=== PATIENT | male | born 1940 | race Two or more races ===

== ENCOUNTER → 2017-09-09 07:04 | Day surgery (SDC) | payer MEDICARE ==
[~2017-09-09 07:04] MED LIST: Acetaminophen TAB* 325 MG ONE; Acetaminophen TAB* 325 MG PO ONE; Aspirin 81 mg CHEW TAB* 81 MG TAB.CHEW ONE; Flumazenil* 0.1 MG/ML 5 ML MDV ONE; Heparin 2 UNITS/ML IVPREMIX* 1,000 ML IV ONE; Heparin 2 UNITS/ML IVPREMIX* 2,000 ML IV ONE; Heparin(*) 1000 UNIT/ML 10 ML VIAL CATH LAB IV ONE; Iohexol 350 (CONTRAST) 200 ML MDV IV ONE; LORazepam TAB(*) 1 MG ONE; Lidocaine 1% INJ* 10 MG/ML 30 ML SDV ONE; Midazolam* 1 MG/ML 10 ML VIAL (10 MG) ONE; Naloxone* 0.4 MG/ML 1 ML VIAL ONE; Ondansetron INJ* 2 MG/ML VIAL ONE; VERAPAMIL 2.5 MG/ML 2 ML VIAL ** 5 mg/2 ml ONE; fentaNYL* 50 MCG/ML 2 ML VIAL (100 MCG VIAL) ONE; nitroGLYCERIN DRIP* 25,000 MCG/250 ML BTL ONE
[2017-09-09 07:51] LABS: Hematocrit 30 % (42-52); Hemoglobin 9.6 g/dl (14.0-18.0); Mean Corpuscular HGB Conc 32 g/dl (31-36); Mean Corpuscular Hemoglobin 23 pg (27-31); Mean Corpuscular Volume 70 fL (80-94); Mean Platelet Volume 6.8 um3 (7.4-10.4); Platelet Count 190 10^3/ul (150-450); Red Blood Count 4.22 10^6/ul (4.00-5.40); Red Cell Distribution Width 16 % (10.5-15); White Blood Count 4.8 10^3/ul (3.5-10.8)
[2017-09-09 07:58] LABS: INR 1.03 (0.77-1.02)
[2017-09-09 08:10] LABS: ABS Basophils 0.1 10^3/ul (0-0.2); ABS Eosinophils 0.3 10^3/ul (0-0.6); ABS Lymphocytes 1.4 10^3/ul (1.0-4.8); ABS Monocytes 0.7 10^3/ul (0-0.8); ABS Neutrophils 2.3 10^3/ul (1.5-7.7); ABS Nucleated RBC 0 10^3/ul; Eosinophil % 6.6 % (0-6); Lymphocyte % 29.5 % (25-47); Nucleated Red Blood Cells % 0
--- NOTE | 2017-09-09 17:18 | PN ---
Progress Note - Progress Note Date of Service: 09/09/17 SOAP: Subjective: Patient with mild, 2/10, low back pain (chronic) that has improved after receiving his usual Tylenol for pain. No CP. No SOB. Pain at lateral left ankle (chronic). No pain at left groin. Objective: Selected Entries 09/09/17 09/09/17 16:17 16:47 Pulse Rate 65 Heart Rate 61 Respiratory 14 Rate Blood Pressure 179/76 (mmHg) Blood Pressure 97 Mean O2 Sat by Pulse 92 Oximetry NAD, AAO x 3 Abd is soft and nontender Left groin is soft and nontender. Dry blood noted on the gauze. No bleeding at dorsal left foot. Dressing is dry. 2+ pulse at left ELECTRON BEAM WELDER/SFA, pop. 1+ pulse at left MAINSTREAMING FACILITATOR. Cannot palpate left DPA. Assessment: 77 YOM s/p ipsilateral antegrade left CF arteriotmy, left leg arteriography, attempted revascularization of left CHRISTINA (not successful) and balloon angioplasty of left MAINSTREAMING FACILITATOR and peroneal arteries. Plan: 1. Plavix 75 mg PO daily x 6 months. 2. ASA 81 mg PO daily for life. 3. Bedrest until 1800 hours. 4. IR clinic RN will call patient 09/12/17. 5. Routine IR clinic follow up will be JUAN RAMON and visit in ~1 month. 6. Continue high quality wound care to left lateral ankle wound.
[2017-09-09 17:42] VITALS: BP 169/93
--- NOTE | 2017-09-12 11:30 | RAD ---
CPT II Codes: G9500 Procedure(s) performed: 1. Diagnostic left lower extremity arteriogram. 2. Attempted revascularization of the anterior tibial artery and dorsalis pedis artery. 3. Balloon angioplasty of the left posterior tibial and peroneal arteries. Date of service: September 09, 2017 Indication for procedure: Chronic lateral left ankle wound Comparison: CTA with runoff dated August 30, 2017. Due to the coarse calcification of the infrapopliteal arteries this CTA provided limited diagnostic value for determining patency and degree of stenosis of the infrapopliteal arteries and therefore a catheter directed arteriogram was necessary. Contrast: 75 mL Omnipaque 320 Fluoroscopy Time: 28.8 minutes Vessels Accessed: 1. Percutaneous access was obtained with ultrasound guidance in the left superficial femoral artery in the antegrade direction towards the foot. Catheter arteriography, with the catheter tip located within the lumen of the following arteries, was performed at the left superficial femoral artery, left popliteal artery, left posterior tibial artery, left peroneal artery and left anterior tibial artery. 2. Ultrasound-guided percutaneous access was obtained at the left dorsalis pedis artery in the retrograde direction towards the heart. Catheter arteriography, with the catheter tip located the lumen of the following arteries, was performed at the left dorsalis pedis artery and left anterior tibial artery. Anesthesia: Conscious sedation with IV Fentanyl and Versed as well as local 1% lidocaine injected locally at the arteriotomy site. Conscious sedation time: Timeout: 922 hours Case end: 1206 hours Total conscious sedation time: 2 hours and 44 minutes Additional medications: * 500 mcg IA nitroglycerin injected intermittently throughout the course of the procedure to alleviate arterial spasm. * IV heparin 5000 Units to achieve a goal ACT of 250-300. * The patient received 1 mg of p.o. Ativan prior to the onset of the procedure. * A "radial cocktail" was slowly injected into the left dorsalis pedis arteriotomy site including heparin 3000 units, nitroglycerin 300 mcg and verapamil 3 mg. PROCEDURE NOTE AND INTRAPROCEDURAL IMAGING FINDINGS: Immediately prior to the procedure the patient signed consent after thoroughly discussing all risks, benefits and alternative therapies. The patient was positioned on the fluoroscopy table in the supine position and the bilateral groins and left ankle were shaved, prepped and the patient was draped in standard sterile fashion. Using fluoroscopic imaging the location of the left superficial femoral head was marked externally with a skin marker on the patient's groin. Utilizing sonographic guidance and palpation, the left superficial femoral artery was cannulated overlying the femoral head with a 21-gauge needle. An ultrasound image was saved. A microwire was slowly and smoothly advanced into the superficial femoral artery under fluoroscopic imaging. No buckling of the wire was visualized to indicate dissection. With the wire securing percutaneous arterial access, the needle was removed and a 5-Luxembourger sheath was advanced under fluoroscopic control into the superficial femoral artery in the antegrade direction towards the foot securing access. The microwire and inner stiffener were removed and a 0.035 inch Bentson wire was advanced into the more distal left superficial femoral artery under fluoroscopic control. The access sheath was removed and exchanged for a 5-Luxembourger SideArm access sheath securing access. Although the patient has a prior CTA, the calcified atherosclerosis limits reliability of the imaging and arteriography of the left lower extremity was necessary to discern any occlusions or stenoses. Contrast was injected into the side arm of the access sheath with the image intensifier in the left anterior oblique projection demonstrating the arteriotomy was in the proximal left superficial femoral artery just below the femoral bifurcation. Contrast injected refluxed showing the left common femoral artery to be adequately patent. The femoral profundus is adequately patent as is the proximal half of the left superficial femoral artery. Contrast was again injected into the left superficial femoral artery access sheath imaging the distal left superficial femoral artery, popliteal artery and proximal most portions of the left infrapopliteal arteries. This demonstrated adequate patency of the remainder of the left SFA and popliteal artery. There is foci of narrowing at the proximal most left posterior tibial and anterior tibial arteries. The Bentson wire was reinserted and a 5-Luxembourger curved tip catheter was advanced to the distal popliteal artery for additional arteriography of the left lower leg. The arteriogram demonstrates several stenoses at the origin of the left posterior tibial artery as well as a stenosis at the proximal left peroneal artery. The left anterior tibial artery exhibits increasingly frequent stenoses in the proximal portion before becoming totally occluded more distally. With the catheter in the same position the distal left lower leg and foot were imaged demonstrating adequate patency of the posterior tibial artery beyond the stenoses. The posterior tibial artery provides the dominant flow to the foot and fills the pedal loop. The peroneal artery contributes collateralized filling below the ankle as well and appears to fill the distal most left CHRISTINA. The left dorsalis pedis artery fills by retrograde flow provided by the pedal loop. There is long segment occlusion of the CHRISTINA from approximately the mid-level left lower leg to the ankle. The wire was reinserted and the access sheath was replaced with a 55 cm length, 5-Luxembourger access sheath which was advanced under fluoroscopic control until the tip was at the distal left popliteal artery. Utilizing a microcatheter and wire the left anterior tibial artery was selected and contrast arteriography was performed to best delineate the severity and length of the occlusion. This confirmed total occlusion of the left CHRISTINA at approximately the mid-level left lower leg. Utilizing a combination of a 0.014 inch advantage microwire and a microcatheter attempt was made to revascularize the occluded left anterior tibial artery. The wire and catheter were advanced as far as the distal left tibial metaphysis. Contrast was injected into the catheter after wire removal which revealed extravasation. At this point it was determined that the best likelihood of revascularizing the left CHRISTINA would be the a retrograde access in the left dorsalis pedis artery. The skin above the left dorsalis pedis artery was imaged with ultrasound and anesthetized with 1% lidocaine. Under sonographic control a microneedle was advanced into the lumen of the artery followed by advancement of a microwire into the distal most portion of the left anterior tibial artery. Over the wire a 4-Luxembourger sheath was advanced into the artery. Once access was secured, the side arm was added to the sheath and the "radial cocktail was slowly injected into the left dorsalis pedis arterial sheath over the course of approximately 2 minutes. From this access point a microwire and catheter were attempted to be advanced into the left anterior tibial artery with the hope of revascularizing the artery. Arteriography was performed through the access sheath in the left dorsalis pedis artery which visualizes the stenotic and also medially occluded inferior left anterior tibial artery. Contrast is seen filling the posterior medial malleolar artery branch of the GREETING CARD MAKER to communicate with the dorsalis pedis. From this injection site there is collateralized filling of the plantar arteries. Attempts were made to revascularize the left anterior tibial artery from this retrograde access that were ultimately unsuccessful. Attention was then returned to the left superficial femoral arteriotomy site. Utilizing the microwire and catheter system the posterior tibial artery was selected. This was confirmed with arteriography through the microcatheter in the left posterior tibial artery which again demonstrated multifocal stenoses in the proximal most portion and ostium of the left GREETING CARD MAKER. With a wire securing access across the stenotic portion of the left GREETING CARD MAKER, balloon angioplasty was performed with a 3 mm x 60 mm Nanocross balloon. The balloon was inflated to just under burst pressure corresponding to an approximate diameter of 3.3 mm. There are balloon remained inflated for approximately 3 1/2 minutes to address vasospasm. Subsequent arteriogram injected from the left popliteal artery shows brisk flow and improved patency through the recently angioplastied left GREETING CARD MAKER. Again imaged is foci of stenosis in the proximal and proximal third left peroneal artery. Utilizing the same microcatheter and wire the peroneal artery was selected. Selection was confirmed with contrast arteriogram of the left peroneal artery. Around this time of the procedure the left dorsalis pedis sheath was removed and direct manual pressure was applied by a technologist in sterile gloves, gown and mask. Over the wire balloon angioplasty was performed across the multifocal stenoses of the left peroneal artery with the same 3 mm x 60 mm Nanocross balloon. The balloon was again inflated to just under burst pressure corresponding to a diameter measurement of approximately 3.3 mm and inflation was held for a minimum of 3 1/2 minutes to address vasospasm. The balloon was deflated and advanced more inferiorly 2 additional foci of stenosis in the left peroneal artery and the same balloon angioplasty today was repeated for 3 1/2 half minutes. A final arteriogram was performed through the long access sheath with the tip in the popliteal artery demonstrating brisk flow through the posterior tibial and peroneal arteries into the hindfoot. Interestingly, there is increased filling of the distal portion of the left anterior tibial artery but this still fills by collateralized flow. Over the wire the access sheath was exchanged for a new 5-Luxembourger, 11 cm length access sheath intended specifically for percutaneous arterial closure. After an appropriate resterilization of the arteriotomy and exchange for new sterile gloves, attempt was made unsuccessfully to deploy a minx closure device. The minx closure device was removed in its entirety (confirmed visually and with fluoroscopy) and direct manual pressure was applied to the left superficial femoral arteriotomy. The access site overlying the lesser trochanter of the femur was suitable for manual compression. Direct manual compression was held for 45 minutes. There were no signs of bleeding at either percutaneous arterial access site and the sites were dressed with sterile gauze and Tegaderm. The patient tolerated the procedure well and was transferred to angiography holding bay for standard post procedural observation. SUMMARY OF PROCEDURE, IMAGING FINDINGS AND INTERVENTIONS PERFORMED: 1. Diagnostic studies performed: * Arterial access was first obtained at the left superficial femoral artery in the antegrade direction (i.e. towards the foot) with ultrasound guidance. A sonographic image was recorded. * Arterial access was also obtained at the left dorsalis pedis artery in the retrograde direction (i.e. towards the heart) with ultrasound guidance. A sonographic image was recorded. * Diagnostic catheter angiography (necessary to perform the appropriate interventions) was performed with the catheter tip in the left superficial femoral artery, left popliteal artery, left posterior tibial artery, left peroneal artery, left anterior tibial artery and left dorsalis pedis artery. * Catheter arteriography was performed of the entire left lower extremity arterial circuit from the distal left external iliac artery to the arteries overlying the left toes. 2. Interpretation of diagnostic studies performed: * Wide patency of the arteries is documented from the left external iliac artery to the tibioperoneal trunk. * Stenoses in the proximal third left anterior tibial artery becoming more frequent inferiorly before the left anterior tibial artery becomes completely occluded from the mid-level left lower leg to the level of the ankle. The distal most left CHRISTINA dorsalis pedis artery fill by collateralized flow provided by branches of the peroneal artery and GREETING CARD MAKER. * Ostial stenoses followed by additional stenoses in the proximal left GREETING CARD MAKER. * Multifocal stenoses in the proximal third left peroneal artery. 3. Surgical interventions performed: * Unsuccessful attempt was made to revascularize the left anterior tibial artery first from the left groin and later from a retrograde left dorsalis pedis arteriotomy. * Balloon angioplasty of the proximal left posterior tibial and peroneal arteries utilizing a 3 mm x 60 mm Nanocross balloon. During each inflation the balloon was inflated to just below burst pressure corresponding to an approximate diameter of 3.3 mm and the balloon remained inflated for a minimum of 3 1/2 minutes to address arterial spasm. * Deployment of the Minx closure device at the left superficial femoral artery was unsuccessful. Direct manual pressure was held on the left superficial femoral arteriotomy for approximately 45 minutes with no evidence of bleeding or hematoma formation. Direct manual pressure was also held at the left dorsalis pedis arteriotomy for approximately 15 minutes, also with no signs of bleeding or hematoma formation. 4. Interpretation of interventions performed: * Final arteriography demonstrated widely patency and brisk flow through the left posterior tibial artery and peroneal artery. Distally there is increased filling of the left anterior tibial artery by collateralized flow but in-line flow through the left CHRISTINA was not achieved.. Plan: 1. Aspirin 81 mg p.o. daily for life. 2. Plavix 75 mg p.o. daily x 6 months. 3. Clinical and imaging follow-up according to standard Interventional Radiology protocol. 4. The patient will continue high-quality wound care at the [facility].
== END | disposition home or self-care (01) ==
LOC: CHICATH 07:04
PROVIDERS: ATTEND Radiology Diagnostic Radiology
DX: I70.262 Atherosclerosis of native arteries of extremities with gangrene, left leg (principal); I47.2 Ventricular tachycardia; Z95.810 Presence of automatic (implantable) cardiac defibrillator; I48.0 Paroxysmal atrial fibrillation; I25.810 Atherosclerosis of coronary artery bypass graft(s) without angina pectoris; I42.8 Other cardiomyopathies
CPT/HCPCS: 36415; 76937; 85025; 85347; 85610; 85730; 99156; A9270-GY; C1725; C1769; C1887; C1894; J1644; J2250; J2310; J2405; J3010

== ENCOUNTER → 2018-12-15 06:35 | Day surgery (SDC) | payer MEDICARE ==
--- NOTE | 2018-12-06 09:15 | HP ---
CC: Dr. Gianfranco Perez; Dr. Tyron Pastrana; Dr. Mccann * ADMITTING HISTORY AND PHYSICAL: DATE OF ADMISSION: 12/15/18 ADMITTING DIAGNOSIS: Phimosis. PLANNED PROCEDURE: Dorsal slit or circumcision (decision to be made intraoperatively) SURGEON: Dr. Mccann HISTORY OF PRESENT ILLNESS: Ursula Graves is a 78-year-old diabetic, who has had long-standing problems with his foreskin. On examination, he was noted to have [id number] phimosis and is now being brought in for a procedure to correct the phimosis either in the form of a dorsal slit or a circumcision ( decisions to be made intraoperatively depending on degree of adhesions between the foreskin and the glands). PAST MEDICAL HISTORY: Significant for: 1. Coronary artery disease. 2. Diabetes mellitus. 3. History of atrial fibrillation. 4. History of cardiomyopathy. MEDICATIONS ON ADMISSION: 1. Omeprazole 40 mg a day. 2. Lisinopril 2.5 mg a day. 3. Furosemide 40 mg twice a day. 4. Carvedilol 6.25 mg half tablet twice a day. 5. Atorvastatin 40 mg a day. 6. Ferrous gluconate 324 one tablet daily. 7. Glyburide 5 mg twice a day. 8. Gabapentin 100 mg twice a day. 9. Ranexa 500 mg twice a day. 10. Isosorbide 30 mg b.i.d. 11. Plavix, which is currently on hold. 12. Aspirin 81 mg a day. 13. K-Rosa 20 mEq. 14. Levothyroxine 50 mcg daily. 15. Metformin 500 mg twice a day. 16. Trazodone 50 mg q.h.s. p.r.n. 17. Ibuprofen 800 mg twice a day p.r.n. ALLERGIES: No known drug allergies. PAST SURGICAL HISTORY: Significant for coronary artery bypass in 2013, pacemaker AICD implantation, and bariatric surgery in 2016. FAMILY HISTORY: Noncontributory. SOCIAL HISTORY: Smoking history: He is a former smoker, who quit 30 years ago and has a 20-pack year smoking history. PHYSICAL EXAMINATION GENERAL: Reveals a pleasant elderly gentleman. VITAL SIGNS: Blood pressure is 108/64, pulse 57 per minute regular, temperature 97.3, oxygen saturation 95% on room air. LUNGS: Clear to bilaterally. CARDIOVASCULAR: Regular rate and rhythm. S1, S2. ABDOMEN: Soft without masses. : Phallus is uncircumcised with moderately severe phimosis and an inability to retract the foreskin at all. IMPRESSION: A 78-year-old diabetic with severe phimosis, who is being brought in for a procedure to correct the phimosis either in the form a dorsal slit or a circumcision. [id number]/[facility] #: [id number] [facility]
[~2018-12-15 06:35] MED LIST changes: -Acetaminophen TAB* 325 MG ONE; -Acetaminophen TAB* 325 MG PO ONE; -Aspirin 81 mg CHEW TAB* 81 MG TAB.CHEW ONE; +Bacitracin OINTMENT* 0.5% 0.5 oz TUBE ONE; +Buffered Lidocaine 1% SYRIN* 1 ML/SYRINGE INTRADERM ONE; +Bupivacaine 0.5%* 50 ML MDV VIAL ONE; -Flumazenil* 0.1 MG/ML 5 ML MDV ONE; -Heparin 2 UNITS/ML IVPREMIX* 1,000 ML IV ONE; -Heparin 2 UNITS/ML IVPREMIX* 2,000 ML IV ONE; -Heparin(*) 1000 UNIT/ML 10 ML VIAL CATH LAB IV ONE; -Iohexol 350 (CONTRAST) 200 ML MDV IV ONE; -LORazepam TAB(*) 1 MG ONE; +Lactated Ringers 1000 ML Bag* 1,000 ML IV SCH; +Lidocaine 2% JELLY* 20 ML (for OR use) ONE; +Lidocaine 2% PF * 5 ML VIAL ONE; -Midazolam* 1 MG/ML 10 ML VIAL (10 MG) ONE; +Naloxone* 0.4 MG/ML 1 ML VIAL IV PRN; -Naloxone* 0.4 MG/ML 1 ML VIAL ONE; +Ondansetron INJ* 2 MG/ML VIAL IV PRN; -Ondansetron INJ* 2 MG/ML VIAL ONE; +Propofol* 10 MG/ML 20 ML BTL ONE; +Sodium Citrate/Citric Acid* 15 ML UDC ONE; +Sodium Citrate/Citric Acid* 15 ML UDC PO ONE; -VERAPAMIL 2.5 MG/ML 2 ML VIAL ** 5 mg/2 ml ONE; +cefTRIAXone(*) 2 GM ADDV.VIAL IVPB ONE; +fentaNYL* 50 MCG/ML 2 ML VIAL (100 MCG VIAL) IV PRN; -nitroGLYCERIN DRIP* 25,000 MCG/250 ML BTL ONE
[2018-12-15 11:19] VITALS: BP 157/69
--- NOTE | 2018-12-15 14:28 | OP ---
CC: Dr. Perez * DATE OF OPERATION: 12/15/18 - [facility] DATE OF : 40 SURGEON: Serg Mccann MD. ANESTHESIOLOGIST: Dr. Guillaume. ANESTHESIA: General. PRE-OP DIAGNOSES: 1. Severe phimosis. 2. Meatal stenosis. POST-OP DIAGNOSES: 1. Severe phimosis. 2. Meatal stenosis. OPERATIVE PROCEDURES: 1. Circumcision. 2. Meatal dilatation. COMPLICATIONS: None. BLOOD LOSS: Minimal. POSTOPERATIVE CONDITION: Stable. SPECIMEN: Portions of foreskin. OPERATIVE FINDINGS: 1. Severe phimosis with extensive adhesions between glans and foreskin. 2. Moderately severe meatal stenosis. INDICATIONS: Ursula Graves is a 78-year-old gentleman with longstanding problems related to phimosis. He is now being brought in for either a circumcision or a dorsal slit procedure to correct the phimosis. DESCRIPTION OF PROCEDURE: After induction of general anesthesia, the patient was placed on the operating table in supine position. External genitalia were prepped and draped in the usual sterile fashion. Initial inspection revealed severe phimosis. I was unable to retract the foreskin at all initially. There were extensive adhesions between the foreskin and glans circumferentially, which were sharply divided. Once this was done, the foreskin could be retracted. Because of the anatomy, I had to modify the circumcision technique, which was done and after infiltration of 1% lidocaine penile block (10 cc) the dorsal aspect of the foreskin was removed. The divided skin edges were approximated using running 3-0 chromic sutures. Next, attention was directed to the ventral aspect of the foreskin, which was fully everted after the adhesions, and then also removed and the skin edges were again approximated using running 3-0 chromic sutures for hemostasis. Once this modified circumcision was completed, attention was directed to the urethral meatus, which was severely stenotic. Meatal dilatation was carried out starting from [address] the way up to 24- [place]. An 18-Comoran red rubber catheter was introduced to empty the bladder and 300 cc of clear urine were drained. Bacitracin ointment was applied. The patient tolerated the procedure satisfactorily and was transferred back to the recovery area in stable condition. [id number]/[facility] #: [id number] [facility]
== END | disposition home or self-care (01) ==
LOC: OR 06:35
PROVIDERS: ATTEND Urology
DX: N47.1 Phimosis (principal); N35.911 Unspecified urethral stricture, male, meatal; E11.9 Type 2 diabetes mellitus without complications; Z79.84 Long term (current) use of oral hypoglycemic drugs; I25.10 Atherosclerotic heart disease of native coronary artery without angina pectoris; I48.91 Unspecified atrial fibrillation; I42.9 Cardiomyopathy, unspecified; Z79.01 Long term (current) use of anticoagulants; Z95.810 Presence of automatic (implantable) cardiac defibrillator; Z95.1 Presence of aortocoronary bypass graft; E03.9 Hypothyroidism, unspecified
CPT/HCPCS: 88304; A9270-GY; J0696; J2704; J3010; J3490

== ENCOUNTER 2019-04-29 11:30 | Observation (INO) | payer MEDICARE ==
--- NOTE | 2019-04-29 11:45 | ED ---
Neurological HPI - HPI Summary HPI Summary: This patient is a 78 year old male presenting to [facility] with a chief complaint of neurological deficit. He states he had a TIA in [place] 10 days ago. He states today he experienced confusion, diaphoresis around 5 hours ago, waking up with the symptoms. He states these are the same symptoms of the TIA from last week this morning. which have now resolved. He states he takes Plavix. Patient states a Hx of CABG, Cardiac Arrest, Internal Defibrillator. Omeprazole CAP (NF) [PriLOSEC CAP*] 40 mg PO BID 07/26/12 [History Confirmed ] Atorvastatin Calcium-Coenzyme [Equapax/Atorvastatin Calc 20 & 100 mg] 40 mg PO QAM 01/17/17 [History Confirmed 12/15/18] Carvedilol TAB* [Coreg TAB*] 0.5 tab PO BID 01/17/17 [History Confirmed 12/15/18 ] Clopidogrel Bisulfate [Plavix] 75 mg PO QPM 01/17/17 [History Confirmed 12/15/18 ] Ferrous Sulfate [Iron High-Potency] 325 mg PO BID 01/17/17 [History Confirmed ] Furosemide TAB* [Lasix TAB*] 40 mg PO BID 01/17/17 [History Confirmed 12/15/18] Gabapentin CAP(*) [Neurontin 100 mg CAP(*)] 100 mg PO BID 01/17/17 [History Confirmed 12/15/18] Levothyroxine Sodium 50 mcg PO QAM 01/17/17 [History Confirmed 12/15/18] Lisinopril [Zestril 5 MG-] 5 mg PO QAM 01/17/17 [History Confirmed 12/15/18] Metformin HCl 500 mg PO BID 01/17/17 [History Confirmed 12/15/18] Potassium Chlor TAB* [Potassium Chlor TAB 20 MEQ*] 20 meq PO QAM 01/17/17 [ History Confirmed 12/15/18] Acetaminophen [Extra Strength Non-Aspirin] 1,000 mg PO BID PRN 09/09/17 [ History Confirmed 12/15/18] Cholecalciferol (Vitamin D3) [Vitamin D3] 2,000 unit PO QAM 09/09/17 [History Confirmed 12/15/18] Isosorbide Mononitrate [Isosorbide Mononitrate ER] 30 mg PO BID 09/09/17 [ History Confirmed 12/15/18] Magnesium Oxide [Magnesium 400 mg] 1 tab PO QAM 09/09/17 [History Confirmed ] glyBURIDE [Glyburide] 5 mg PO BID 09/09/17 [History Confirmed 12/15/18] Sucralfate TAB* [Carafate*] 1 gm PO BID 12/08/18 [History Confirmed 12/15/18] traZODone TAB* [Desyrel TAB*] 100 mg PO BEDTIME 12/08/18 [History Confirmed ] - History of Current Complaint Chief Complaint: EDNeurologicalDeficit Stated Complaint: THINKS TIA PER PT Hx Obtained From: Patient Onset/Duration: Started hours ago Pain Intensity: 0 Pain Scale Used: 0-10 Numeric Character: Confusion - Allergy/Home Medications Allergies/Adverse Reactions: Allergies Allergy/AdvReac Type Severity Reaction Status Date / Time shrimp Allergy Mild Hives Verified 12/08/18 10:20 Home Medications: Home Medications Ascorbic Acid TAB* [Vitamin C TAB*] 500 mg PO DAILY 04/29/19 [History Confirmed 04/29/19] Carvedilol TAB* [Coreg TAB*] 3.125 mg PO BID 04/29/19 [History Confirmed ] Clopidogrel TAB* [Plavix TAB*] 75 mg PO DAILY 04/29/19 [History Confirmed ] Ferrous Gluconate TAB* [Fergon TAB*] 325 mg PO DAILY 04/29/19 [History Confirmed 04/29/19] Furosemide TAB* [Lasix TAB*] 40 mg PO DAILY 04/29/19 [History Confirmed 04/29/19 ] Gabapentin CAP(*) [Neurontin 100 mg CAP(*)] 100 mg PO BID 04/29/19 [History Confirmed 04/29/19] Isosorbide Mononitrate ER TAB* [Imdur ER TAB*] 30 mg PO BID 04/29/19 [History Confirmed 04/29/19] Levothyroxine TAB* [Synthroid TAB*] 50 mcg PO DAILY 04/29/19 [History Confirmed 04/29/19] Lisinopril TAB* [Prinivil TAB*] 2.5 mg PO DAILY 04/29/19 [History Confirmed 03/19] Magnesium Oxide TAB* [MagOx 400 TAB*] 400 mg PO DAILY 04/29/19 [History Confirmed 04/29/19] Omeprazole 40 mg PO DAILY 04/29/19 [History Confirmed 04/29/19] Potassium Chloride [Klor-Con M20] 20 meq PO DAILY 04/29/19 [History Confirmed ] Sucralfate TAB* [Carafate*] 1 gm PO BID 04/29/19 [History Confirmed 04/29/19] glyBURIDE TAB* [Diabeta TAB*] 5 mg PO BID 04/29/19 [History Confirmed 04/29/19] metFORMIN* [Glucophage 500 MG TAB *] 500 mg PO BID 04/29/19 [History Confirmed 04/29/19] traZODone TAB* [Desyrel TAB*] 50 mg PO BEDTIME 04/29/19 [History Confirmed 04/28] PMH/Surg Hx/FS Hx/Imm Hx Endocrine/Hematology History: Reports: Hx Diabetes - TYPE II, Hx Thyroid Disease - THYPOTHYROID-TX LEVOTHYROXINE Denies: Hx Bone Marrow Disease, Hx Sickle Cell Disease, Hx Anemia Cardiovascular History: Reports: Hx Congestive Heart Failure - current admission , Hx Coronary Artery Disease - HLD-TX ATORVASTATIN, Hx Pacemaker/ICD, Hx Peripheral Vascular Disease, Other Cardiovascular Problems/Disorders - ONGOING LEFT ANKLE WOUND-SLOW HWALING D/T CIRCULATION PROBLEMS Denies: Hx Angina, Hx Cardiomegaly, Hx Hypertension, Hx Rheumatic Fever, Hx Valvular Heart Disease Respiratory History: Reports: Hx Chronic Bronchitis Denies: Hx Pulmonary Edema, Hx Pulmonary Embolism, Other Respiratory Problems /Disorders GI History: Reports: Hx Gastroesophageal Reflux Disease - ON MEDICATION Denies: Other GI Disorders History: Reports: Other Problems/Disorders - NEEDS CIRCUMCISION Denies: Hx Kidney Infection, Hx Kidney Stones, Hx Renal Disease Musculoskeletal History: Reports: Hx Arthritis - TX TYLENOL FOR BACK Denies: Hx Bursitis, Hx Tendonitis, Other Musculoskeletal History Sensory History: Reports: Hx Cataracts - BILATERAL EYES, Hx Contacts or Glasses - GLASSES Denies: Hx Glaucoma, Hx Hearing Aid Opthamlomology History: Reports: Hx Cataracts - BILATERAL EYES, Hx Contacts or Glasses - GLASSES Denies: Hx Glaucoma Neurological History: Reports: Other Neuro Impairments/Disorders - neuropathy Psychiatric History: Denies: Hx Panic Disorder - Cancer History Hx Chemotherapy: No - Surgical History Surgery Procedure, Year, and Place: ELBOW SURGERY - RADIUS FX 2011. OPEN HEART - NOV 2012 - DOUBLE BYPASS Hx Anesthesia Reactions: No - Immunization History Date of Tetanus Vaccine: UTD Date of Influenza Vaccine: 2011 Infectious Disease History: Denies: Traveled Outside the [place] in Last 30 Days - Family History Known Family History: Negative: Seizure Disorder - Social History Alcohol Use: None Substance Use Type: Reports: None Smoking Status (MU): Former Smoker Amount Used/How Often: 1/2 PPD X 12 YRS Review of Systems Positive: Skin Diaphoresis Neurological/Mental Status: Other - Confusion All Other Systems Reviewed And Are Negative: Yes Physical Exam - Summary Physical Exam Summary: VITAL SIGNS: Reviewed. GENERAL: Patient is a well-developed and nourished MALE who is lying comfortable in the stretcher. Patient is not in any acute respiratory distress. HEAD AND FACE: No signs of trauma. No ecchymosis, hematomas or skull depressions. No sinus tenderness. EYES: PERRLA, EOMI x 2, No injected conjunctiva, no nystagmus. No photophobia. EARS: Hearing grossly intact. Ear canals and tympanic membranes are within normal limits. MOUTH: Oropharynx within normal limits. NECK: Supple, trachea is midline, no adenopathy, no JVD, no carotid bruit, no c- spine tenderness, neck with full ROM. No meningeal signs, no Kernig's or brudzinskis signs. CHEST: Symmetric, no tenderness at palpation. LUNGS: Clear to auscultation bilaterally. No wheezing or crackles. CVS: Regular rate and rhythm, S1 and S2 present, no murmurs or gallops appreciated. ABDOMEN: Soft, non-tender. No signs of distention. No rebound, no guarding, and no masses palpated. Bowel sounds are normal. EXTREMITIES: FROM in all major joints, no edema, no cyanosis or clubbing. NEURO: Alert and oriented x 3. No acute neurological deficits. Speech is normal and follows commands. SKIN: Dry and warm. GCS: 15 Triage Information Reviewed: Yes Vital Signs On Initial Exam: Initial Vitals Temp Pulse Resp BP Pulse Ox 96.4 F 82 16 147/83 98 04/29/19 11:33 04/29/19 11:33 04/29/19 11:33 04/29/19 11:33 04/29/19 11:33 Vital Signs Reviewed: Yes Procedures - Sedation Patient Received Moderate/Deep Sedation with Procedure: No Diagnostics - Vital Signs Vital Signs Temp Pulse Resp BP Pulse Ox 04/29/19 11:33 96.4 F 82 16 147/83 98 - Laboratory Result Diagrams: 04/29/19 11:56 04/29/19 11:56 Lab Statement: Any lab studies that have been ordered have been reviewed, and results considered in the medical decision making process. - Radiology CXR Radiology Interpretation Completed By: Radiologist Summary of Radiographic Findings: Chest X-Ray findings are consistent with mild pulmonary edema and/or vascular congestion. ED Provider has reviewed this report. - CT Brain CT Interpretation Completed By: Radiologist Summary of CT Findings: Chronic findings as described above without noncontrast CT apparent acute intracranial abnormality. ED Provider has reviewed this report. - EKG 1238 Cardiac Rate: NL - 73 BPM EKG Rhythm: Sinus Rhythm Summary of EKG Findings: Multiple PVCs and RBBB. ED Physician has reviewed and interpreted this EKG. NIH Scale - NIH Scale Level of Consciousness: Alert/Keenly Responsive Ask Patient the Month and His/Her Age: Both Correct Ask Pt to Open/Close Eyes and Patient Financial Specialist/Release Non-Paretic Hand: Both Correctly Best Gaze (Only Horizontal Eye Movement): Normal Visual Field Testing: No Visual Loss Facial Paresis-Pt to Smile & Close Eyes or Grimace Symmetry: Normal/Symmetrical Motor Function - Right Arm: No Drift-Holds 10 Seconds Motor Function - Left Arm: No Drift-Holds 10 Seconds Motor Function - Right Leg: No Drift-Holds 10 Seconds Motor Function - Left Leg: No Drift-Holds 10 Seconds Limb Ataxia-Must be out of Proportion to Weakness Present: Absent Sensory (Use Pinprick to Test Arms/Legs/Trunk/Face): Normal Best Language (Describe Picture, Name Items): No Aphasia Dysarthria (Read Several Words): Normal Extinction and Inattention: No Abnormality Total Score: 0 Course/Dx - Course Assessment/Plan: This patient is a 78 year old male presenting to [facility] with a chief complaint of neurological deficit. He states he had a TIA in [place] 10 days ago. He states today he experienced confusion, diaphoresis around 5 hours ago, waking up with the symptoms. He states these are the same symptoms of the TIA from last week this morning. which have now been resolved. He states he takes Plavix. Patient states a Hx of CABG, Cardiac Arrest, Internal Defibrillator. Patient reports that he woke up with the symptoms of this confusion unable to ambulate. They lasted for 1 hour but now all symptoms resolved. At this point the patient is feeling better and asymptomatic. He is only complaining of weakness. NIH score is equal to 0, and the GCS is 15. Glucose results without any significant abnormality except for slight anemia, sodium 134, carbon dioxide is 19, BUN is 59, creatinine is 159, glucose is 105, troponin 0.06. Head CT impression: IMPRESSION: Chronic findings as described above without noncontrast CT apparent acute. intracranial abnormality. CXR IMPRESSION: CHEST X-RAY FINDINGS ARE CONSISTENT WITH MILD PULMONARY EDEMA AND/ OR VASCULAR CONGESTION. I discuss my physical exam and test results with Dr. Thomas from the hospitalist services and he agrees to admit the patient to his services. The patient is hemodynamically stable alert and oriented x 3. - Diagnoses Provider Diagnoses: TIA (transient ischemic attack), Elevated troponin - Physician Notifications Discussed Care Of Patient With: Wade Maciel - Neurology Time Discussed With Above Provider: 13:59 - Recommends admission, CTA Head/Neck , and administration of Plavix. Discharge ED - Sign-Out/Discharge Documenting (check all that apply): Patient Departure - Discharge Plan Condition: Stable Disposition: ADMITTED TO [facility] - Billing Disposition and Condition Condition: STABLE Disposition: Admitted to [facility] - Attestation Statements Document Initiated by Vinod: Yes Documenting Scribe: Eriberto Krishna Provider For Whom Vinod is Documenting (Include Credential): Shine Mera MD Scribe Attestation: I, Eriberto Krishna, scribed for Shine Mera MD on 04/29/19 at 2102. Scribe Documentation Reviewed: Yes Provider Attestation: The documentation as recorded by the Eriberto sousa accurately reflects the service I personally performed and the decisions made by me, Shine Mera MD Status of Scribe Document: Viewed
[2019-04-29 12:22] LABS: ALT 13 U/L (7-52); AST 20 U/L (13-39); Albumin 4.2 g/dL (3.2-5.2); Albumin/Globulin Ratio 1.1 (1-3); Alkaline Phosphatase 92 U/L (34-104); Anion Gap 8 mmol/L (2-11); BUN/Creatinine Ratio 37.1 (8-20); Blood Urea Nitrogen 59 mg/dL (6-24); CO2 Carbon Dioxide 19 mmol/L (22-32); Calcium 9.3 mg/dL (8.6-10.3); Chloride 107 mmol/L (101-111); Cholesterol 131 mg/dL; EGFR African American 51.2 (>60); EGFR Non-African American 42.3 (>60); Globulin 3.8 g/dL (2-4); Glucose 105 mg/dL (70-100); HDL Cholesterol 36.6 mg/dL; LDL Cholesterol 77 mg/dL; Potassium 4.5 mmol/L (3.5-5.0); Sodium 134 mmol/L (135-145); Triglycerides 89 mg/dL
[2019-04-29 12:27] LABS: Troponin I 0.06 ng/mL (<0.03)
[2019-04-29 12:31] LABS: Activated Partial Thrombo Time 32.6 seconds (26.0-38.0); INR 1.16 (0.82-1.09)
[2019-04-29 12:33] LABS: ABS Eosinophils 0.1 10^3/ul (0-0.6); ABS Monocytes 0.7 10^3/ul (0-0.8); ABS Neutrophils 2.1 10^3/ul (1.5-7.7); Eosinophil % 1.6 %; Hematocrit 36 % (42-52); Hemoglobin 11.1 g/dL (14.0-18.0); Mean Corpuscular HGB Conc 31 g/dL (31-36); Mean Corpuscular Hemoglobin 22 pg (27-31); Mean Corpuscular Volume 71 fL (80-94); Mean Platelet Volume 7.1 fL (7.4-10.4); Nucleated Red Blood Cells % 0.1; Platelet Count 219 10^3/uL (150-450); Red Blood Count 4.99 10^6 /uL (4.18-5.48); Red Cell Distribution Width 15 % (10-15); White Blood Count 3.9 10^3/uL (3.5-10.8)
[2019-04-29 12:46] LABS: Alcohol < 10 mg/dL (<10)
[2019-04-29] MEDS ORDERED: NS 0.9% 1000 ML** 1,000 ML IV ONE (13:05)
[2019-04-29] MEDS ORDERED: Aspirin 81 mg CHEW TAB* 81 MG TAB.CHEW PO ONE (13:46)
[2019-04-29] MEDS ORDERED: Clopidogrel TAB* 300 MG PO ONE (13:57)
[2019-04-29] MEDS ORDERED: Iodixanol* (CONTRAST) 320 MG/ML 100 ML SDV IV ONE (14:02)
[2019-04-29] MEDS ORDERED: Dextrose 50% Syringe 50 ML* 25 GM/50 ML SYRINGE IV PUSH PRN (15:04)
[2019-04-29 15:55] LABS: TSH (Thyroid Stimulating Horm) 1.02 mcIU/mL (0.34-5.60)
[2019-04-29] MEDS ORDERED: glyBURIDE TAB* 5 MG PO SCH (17:00)
--- NOTE | 2019-04-29 18:02 | HP ---
CC: Dr. Perez; Dr. Pastrana * HISTORY AND PHYSICAL: DATE OF ADMISSION: 04/29/19 PRIMARY CARE PROVIDER: Dr. Perez. SENIOR BUDGET ANALYST: Dr. Pastrana. CHIEF COMPLAINT: Disorientation and unsteadiness. HISTORY OF PRESENT ILLNESS: Mr. Graves is a 78-year-old male who has a history of type 2 diabetes, coronary artery disease/ischemic cardiomyopathy, atrial fibrillation, peripheral arterial disease and hypothyroidism, who presents to the emergency room with complaints of disorientation and unsteadiness on the feet. The patient states that he just flew home from [place] last evening. On 04/25/19, the patient presented to the emergency room in [place] for complaints of disorientation and unsteadiness. 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 He states that he felt like he could not make fists bilaterally. When he tried, his hand shook. He felt that when he tried to get up, he was both weak and off balance. The patient states that he spent all day in the emergency room in a hallway and was unhappy with the care he was receiving and therefore, left. It is unclear if he left against medical advice or if the facility felt that an appropriate observation period was up. The patient states that everything went back to normal several hours into that emergency room stay and remained normal up until the morning of this admission. The patient states that again this morning, he woke up and felt exactly the same as he did before. He felt disoriented, but knew where he was. He again tried to make fists bilaterally, but was unable to do so. When he tried to get up, he felt very unsteady on his feet. The unsteadiness has essentially gone away at this point and he is now back to his baseline. The patient has no focal weakness. He felt that his speech was off and that he was talking slowly and that his "thoughts were scrambled." The patient ultimately presented to the emergency room for evaluation. PAST MEDICAL HISTORY: 1. Type 2 diabetes. 2. Hypothyroidism. 3. Coronary artery disease/ischemic cardiomyopathy/left bundle branch block. 4. Hyperlipidemia. 5. History of VFib arrest, status post BiV ICD. 6. Atrial fibrillation. 7. Peripheral arterial disease. PAST SURGICAL HISTORY: 1. Bilateral cataract extraction. 2. CABG. 3. ICD insertion. MEDICATIONS: 1. Lasix 40 mg p.o. daily. 2. Ferrous gluconate 324 mg p.o. daily. 3. Plavix 75 mg p.o. daily. 4. Ascorbic acid 500 mg p.o. daily. 5. Trazodone 50 mg p.o. q.h.s. 6. Metformin 500 mg p.o. b.i.d. 7. Glyburide 5 mg p.o. b.i.d. 8. Carafate 1 g p.o. b.i.d. 9. Magnesium oxide 400 mg p.o. daily. 10. Levothyroxine 50 mcg p.o. daily. 11. Imdur 30 mg p.o. b.i.d. 12. Gabapentin 100 mg p.o. b.i.d. 13. Potassium chloride 20 mEq p.o. daily. 14. Omeprazole 40 mg p.o. daily. 15. Coreg 3.125 mg p.o. twice daily. 16. Lisinopril 2.5 mg p.o. daily. ALLERGIES: No known drug allergies. FAMILY HISTORY: Mom at the age of 84 with CHF. Dad at the age of 67 of tuberculosis. SOCIAL HISTORY: The patient is a former smoker, quitting in the . He does not drink alcohol. He worked as an electrical inspector. He is . He had 3 children. His son is . He has 2 daughters. He lives alone. He states that his nephew, Hector or daughter, Dora would be his healthcare proxy. REVIEW OF SYSTEMS: A complete 11-system review of systems is obtained. Pertinent positives and negatives are as per HPI and in addition, the patient does state that last 04/24/19, he had significant diarrhea, though this is now resolved. The rest of the review of systems is negative or as per HPI. PHYSICAL EXAMINATION GENERAL: The patient is a well-developed, elderly male, seen sitting up in a recliner chair, in no acute distress. VITAL SIGNS: Blood pressure 124/73, pulse 77, respirations 23, temp 96.4, O2 sat 99% on room air. HEENT: Pupils are approximately 2 mm, they react to 1. There is evidence of prior cataract extraction. Extraocular muscles are intact. Oropharynx is clear and moist. The patient's bridge is broken. There is no submandibular, cervical, or supraclavicular adenopathy. PULMONARY: There are left greater than right basilar crackles. Otherwise, lungs are clear. CARDIAC: Normal S1, S2. Heart rate is irregular. On monitor, it appears that he is mostly paced with perhaps some intrinsic beats. There is no lower extremity edema. There are however chronic venous stasis changes to the bilateral lower extremities. ABDOMEN: Bowel sounds present. Abdomen is soft, nontender, nondistended. MUSCULOSKELETAL: The patient moves all 4 extremities symmetrically. NEURO: Cranial nerves II through XII are grossly intact. Sensation is intact to light touch throughout. Strength is 5/5 and symmetric in both upper and lower extremities bilaterally. PSYCH: The patient is alert. He is oriented x3. Affect appears appropriate. SKIN: There are chronic venous stasis changes to the bilateral lower extremities. There are few thickened scabs on anterior right nichole. The patient reportedly has a chronic wound overlying the left lateral malleolus. He states that it is covered in some sort of stem cell dressing that is not to be removed until later this week; therefore, I did not remove the dressing. DIAGNOSTIC STUDIES/LAB DATA: WBC 3.9, hemoglobin 11.1, hematocrit 36, platelets 219. INR 1.16. Sodium 134, potassium 4.5, chloride 107, CO2 of 19, BUN 59, creatinine 1.59, glucose 105, lactic acid 1.1, calcium 9.3. Bilirubin 0.3, AST 20, ALT 13, alk phos 92. Troponin 0.06. Albumin 4.2, triglyceride 89 , LDL 77, HDL 36.6. Total cholesterol 131. Serum alcohol less than 10. CT brain: There is mild degree of age appropriate involutional change. There is coarse atherosclerotic calcification of the left vertebral artery. There is coarse calcification of the bilateral petrous carotid arteries. There is no apparent acute intracranial abnormality. CTA head and neck: There is 50% stenosis on the right and 66% stenosis on the left at the carotid bulbs. There is coarse calcification at the origin of the left vertebral artery causing likely high-grade stenosis. There is lower cervical spine degenerative disk disease. There is ground-glass opacifications in the upper lungs bilaterally likely pulmonary edema/vascular congestion. Chest x-ray: Chest x-ray findings are consistent with mild pulmonary edema/ vascular congestion. EKG reveals sinus rhythm with occasional paced beats. ASSESSMENT AND PLAN: Mr. Graves is a 78-year-old male with known coronary artery disease/ischemic cardiomyopathy, atrial fibrillation, type 2 diabetes, hypothyroidism, and peripheral arterial disease, who presents to the emergency room with an episode of disorientation, unsteadiness on his feet and feeling that he was talking slowly and that his thoughts were not cohesive and he is being admitted for evaluation of possible transient ischemic attack. 1. Disorientation and unsteadiness on the feet. The patient is being admitted to rule out transient ischemic attack; however, the patient's symptoms do not seem to be focal in nature. This was however identical to an episode that he had last week. I questioned if it may be related to the trazodone that he is taking at bedtime. I am going to put this on hold. Neurology consultation will be requested. For now, he will continue on his Plavix 75 mg daily. He was loaded with Plavix in the emergency room. The loading occurred because the patient states that he stopped his Plavix at least 7 to 8 days ago in preparation of a dental appointment to be evaluated for repair of his broken bridge. We will continue the Plavix 75 mg daily for now. He also has a reported history of atrial fibrillation. He is not on full anticoagulation. At this point, I am going to hold off on starting full anticoagulation, but we will discuss with Neurology after they see the patient. 2. Coronary artery disease/ischemic cardiomyopathy. The patient will continue on Plavix, Coreg, lisinopril, and Imdur. He has been taken off his Lipitor. He has no complaints of chest pain. His troponin however is mildly elevated at 0.06. A followup troponin will be obtained now. 3. Type 2 diabetes. The patient will have a hemoglobin A1c obtained. He will be maintained on his usual dose of glyburide, though I am going to hold his metformin in the setting of having received contrast for the CTA of the head and neck. He will be placed on a lispro sliding scale. 4. Hypothyroidism. I will add on the TSH to the labs that were obtained in the emergency room. For now, he will continue on his usual dose of Synthroid. 5. DVT prophylaxis: According to the Adult Thrombosis Prophylaxis Risk Factor Assessment Guide, the patient has a total risk factor score of 4, making him high risk. He will be placed on Lovenox 30 mg subcutaneous daily. 6. Code status is full. TIME SPENT: 65 minutes was spent admitting this patient. [id number]/[facility] #: [id number] [place]
[2019-04-29] MEDS: Insulin LISPRO* 1 UNITS UNIT SUBCUT SCH ×2 (18:05→20:11)
[2019-04-29] MEDS: Enoxaparin(*) 30 MG/0.3 ML SYR SUBCUT SCH (18:05)
[2019-04-29 19:22] LABS: Troponin I 0.21 ng/mL (<0.03)
[2019-04-29] MEDS ORDERED: Calcium Carbonate CHEW TAB* 500 MG (TUMS) PO ONE (20:07)
[2019-04-29] MEDS ORDERED: traZODone TAB* 50 MG TAB PO PRN (20:08)
[2019-04-29] MEDS ORDERED: traMADol TAB* 50 MG PO PRN (20:08)
[2019-04-29] MEDS: Gabapentin CAP(*) 100 MG PO SCH (20:10)
[2019-04-29] MEDS: Carvedilol TAB* 3.125 MG PO SCH (20:13)
[2019-04-29] MEDS: Isosorbide Mononitrate ER TAB* 30 MG PO SCH (20:13)
[2019-04-29] MEDS: Sucralfate TAB* 1 GM PO SCH (20:36)
[2019-04-29] MEDS ORDERED: metFORMIN* 500 MG TAB PO SCH (21:00)
[2019-04-29 22:25] LABS: Urine Appearance Clear; Urine Bilirubin Negative (Negative); Urine Blood Negative (Negative); Urine Color Straw; Urine Glucose Negative (Negative); Urine Ketones Negative (Negative); Urine Nitrite Negative (Negative); Urine Protein Negative (Negative); Urine Specific Gravity 1.018 (1.010-1.030); Urine Urobilinogen Negative (Negative)
[2019-04-29] MEDS ORDERED: Calcium Carbonate CHEW TAB* 500 MG (TUMS) PO PRN (23:36)
--- NOTE | 2019-04-30 00:43 | PN ---
Hospitalist Progress Note Date of Service: 04/30/19 Call from heartburn and epigastric pain at 1930. Noted trop 0.21. EKG check unchanged. Patient states that this feels like his heartburn that he normally has and request tums. Given stable ekg will try tums. Noted repeat trop stable at 0.20. Will follow. Re-eval patient heart burn gone and is now asleep. Will follow trops.
[2019-04-30] MEDS: Sucralfate TAB* 1 GM PO SCH (05:54)
[2019-04-30] MEDS ORDERED: Levothyroxine TAB* 50 MCG TAB PO SCH (06:00)
[2019-04-30 07:04] LABS: ABS Eosinophils 0.1 10^3/ul (0-0.6); ABS Lymphocytes 0.9 10^3/ul (1.0-4.8); ABS Monocytes 0.7 10^3/ul (0-0.8); ABS Neutrophils 2.1 10^3/ul (1.5-7.7); Eosinophil % 3.4 %; Hematocrit 30 % (42-52); Hemoglobin 9.6 g/dL (14.0-18.0); Lymphocyte % 22.7 %; Mean Corpuscular HGB Conc 32 g/dL (31-36); Mean Corpuscular Hemoglobin 23 pg (27-31); Mean Corpuscular Volume 71 fL (80-94); Mean Platelet Volume 7.5 fL (7.4-10.4); Nucleated Red Blood Cells % 0.1; Platelet Count 172 10^3/uL (150-450); Red Blood Count 4.26 10^6 /uL (4.18-5.48); Red Cell Distribution Width 15 % (10-15); White Blood Count 3.8 10^3/uL (3.5-10.8)
[2019-04-30 07:16] LABS: Troponin I 0.17 ng/mL (<0.03)
[2019-04-30 07:45] LABS: CO2 Carbon Dioxide 18 mmol/L (22-32); Calcium 8.5 mg/dL (8.6-10.3); Chloride 110 mmol/L (101-111); Sodium 135 mmol/L (135-145)
[2019-04-30 07:51] LABS: BUN/Creatinine Ratio 36.6 (8-20); Blood Urea Nitrogen 56 mg/dL (6-24); EGFR African American 53.5 (>60); EGFR Non-African American 44.2 (>60); Glucose 150 mg/dL (70-100)
[2019-04-30 08:00] LABS: Anion Gap 7 mmol/L (2-11); Potassium 5.2 mmol/L (3.5-5.0)
[2019-04-30] MEDS: Isosorbide Mononitrate ER TAB* 30 MG PO SCH (08:21)
[2019-04-30] MEDS: Gabapentin CAP(*) 100 MG PO SCH (08:21)
[2019-04-30] MEDS: Carvedilol TAB* 3.125 MG PO SCH (08:24)
[2019-04-30] MEDS ORDERED: Potassium Chlor TAB* 20 MEQ TAB.ER PO SCH (09:00)
[2019-04-30] MEDS ORDERED: Pantoprazole TAB * 40 MG TAB PO SCH (09:00)
[2019-04-30] MEDS ORDERED: Furosemide TAB* 40 MG PO SCH (09:00)
[2019-04-30] MEDS ORDERED: Clopidogrel TAB* 75 MG PO SCH (09:00)
[2019-04-30] MEDS ORDERED: Ferrous Gluconate TAB* 324 MG TAB PO SCH (09:00)
[2019-04-30] MEDS ORDERED: Magnesium Oxide TAB* 400 MG PO SCH (09:00)
[2019-04-30] MEDS ORDERED: Ascorbic Acid TAB* 500 MG PO SCH (09:00)
[2019-04-30] MEDS ORDERED: Lisinopril TAB* 5 MG PO SCH (09:00)
[2019-04-30] MEDS: Insulin LISPRO* 1 UNITS UNIT SUBCUT SCH ×2 (12:32→17:27)
[2019-04-30] MEDS ORDERED: Perflutren Lipid Microsphere* 3 ML VIAL ONE (14:07)
[2019-04-30 15:24] LABS: BUN/Creatinine Ratio 35.6 (8-20); Calcium 9.1 mg/dL (8.6-10.3); EGFR African American 56.5 (>60); EGFR Non-African American 46.7 (>60)
[2019-04-30] MEDS: Enoxaparin(*) 30 MG/0.3 ML SYR SUBCUT SCH (15:28)
--- NOTE | 2019-04-30 16:37 | ECHO ---
*[facility]* [place] [address] Fax #: [phone] Transthoracic Echocardiogram Patient: Ursula Graves : 1940 Study Date: 04/30/2019 Age: 78 Gender: M HR: 70 bpm Height: 68 in /172.7 cm BSA: 2.09 m^2 Weight: 210.6 lb /95.7 kg BMI: 32.1 kg/m^2 *Corporate Pilot: * Alayna Alonzo RDCS RN *Referring Physician: * Anika Thomas *Reading Physician: * Tyron Psatrana MD Indications: TIA. History: Atrial fibrillation. CABG. ICD implant. Coronary artery disease. Risk factors: Former tobacco use. Diabetes mellitus. Obese. Dyslipidemia. Conclusions Summary: - Left ventricle: Systolic function is at the lower limits of normal. The estimated ejection fraction is 50-55%. Regional wall motion abnormalities cannot be excluded due to the poor image quality. There is moderate dyssynchrony due to Paced rhythm - Right ventricle: Systolic function is low normal. - Left atrium: The atrium is moderately to severely dilated. - Atrial septum: A bubble study is attempted on Images 100 and 101. The image quality is poor and the bubble study is non-diagnostic. - Mitral valve: There is no significant regurgitation. - Aortic valve: There is no evidence of stenosis. - Tricuspid valve: There is no significant regurgitation. - Pericardium, extracardiac: There is no significant pericardial effusion. - Pulmonary arteries: Systolic pressure cannot be accurately estimated. - Compared to study of 12/09/12, there is no significant change. Study data: Transthoracic echocardiogram. Procedure: Transthoracic echocardiography was performed. Image quality was poor. The study was technically limited due to body habitus, smoking history, and chest wall tenderness. Intravenous Definity 4 ml was administered to enhance imaging. A bubble study using agitated normal saline was attempted on Images 100 and 101. Complete 2D, spectral Doppler, and color flow Doppler. Location: Bedside. Patient status: Inpatient. Patient room number: 448-02. Rhythm: Paced rhythm. Findings Left ventricle: The cavity size is normal. Wall thickness is moderately increased. Systolic function is at the lower limits of normal. The estimated ejection fraction is 50-55%. Regional wall motion abnormalities cannot be excluded due to the poor image quality. There is moderate dyssynchrony due to Paced rhythm Left ventricular diastolic function parameters are indeterminate. Right ventricle: Not well visualized. The cavity size is mildly dilated. Pacer wire noted in the right ventricle. Systolic function is low normal. Left atrium: The atrium is moderately to severely dilated. Right atrium: The atrium is moderately dilated. Pacer wire noted in right atrium. Atrial septum: A bubble study is attempted on Images 100 and 101. The image quality is poor and the bubble study is non-diagnostic. Mitral valve: Not well visualized. The mitral valve annulus appears calcified. The leaflets are mildly thickened. There is no evidence of stenosis. There is no significant regurgitation. Aortic valve: Not well visualized. The annulus is calcified. The valve is trileaflet. The leaflets are mildly thickened. There is no evidence of stenosis. There is no significant regurgitation. Tricuspid valve: Not well visualized. There is no significant regurgitation. Pulmonic valve: Not well visualized. There is no significant regurgitation. Aorta: Aortic root: The aortic root is not dilated. Ascending aorta: The ascending aorta is not visualized. Aortic arch: The aortic arch is not dilated. Pericardium: There is no significant pericardial effusion. Pulmonary arteries: Not well visualized. Systolic pressure cannot be accurately estimated. Systemic veins: Inferior vena cava: The vessel is normal in size. There is (>= 50%) respiratory change in the IVC dimension. Measurements Left ventricle Value Ref Aortic valve Value Ref CHASTITY, LAX 4.8 cm 4.2 - 5.8 Li diam, ED 2.0 cm ---- PW, ED (H) 1.1 cm 0.6 - 1.0 Li diam/bsa, ED 0.9 cm/m^2 ---- IVS/PW, ED 1.32 Peak v, S 1.25 m/sec ---- E', lat li, TDI (L) 9.5 cm/sec >=10.0 VTI, S 23.1 cm - --- E/e', lat li, 8 Mean grad, S 4.0 mm Hg ---- TDI Peak grad, S 6.0 mm Hg ---- E', med li, TDI (L) 6.1 cm/sec >=7.0 LVOT/AV, VTI ratio 0.87 - --- E/e', med li, 12 BESSY, VTI 2.73 cm^2 ---- TDI BESSY, Vmax 2.30 cm^2 ---- E', avg, TDI 7.8 cm/sec E/e', avg, TDI 10 <=14 Mitral valve Value R ef Peak E 0.75 m/sec ---- LVOT Value Ref Peak A 0.67 m/sec ---- Diam, S 2.00 cm Decel time 306 ms ---- Area 3.1 cm^2 Peak grad, D 2.2 mm Hg ---- Peak wyatt, S 0.92 m/sec Peak E/A ratio 1.1 ---- VTI, S 20.1 cm Mean grad, S 2 mm Hg Pulmonic valve Value Ref SV 63 ml Peak v, S 0.62 m/sec ---- SV/bsa 30 ml/m^2 Peak grad, S 2.0 mm Hg ---- Ventricular septum Value Ref Aortic root Value Ref IVS, ED (H) 1.5 cm 0.6 - 1.0 Root diam 3.7 cm <4.2 Right ventricle Value Ref Aortic arch Value Ref CHASTITY minor ax, A4C (H) 4.2 cm 1.9 - 3.5 Arch diam 3.1 cm ---- mid Decending aorta Value Ref Left atrium Value Ref Mumtaz peak wyatt 0.47 m/sec ---- AP dim, ES 4.00 cm 3.00 - 4.00 Inferior vena cava Value Ref ML dim, A4C 5.6 cm Diam 1.5 cm ---- SI dim, A4C 7.0 cm Right atrium Value Ref ML dim, ES, A4C (H) 4.9 cm 2.6 - 4.4 SI dim, ES, A4C (H) 6.1 cm 3.4 - 5.3 Estimated RAP 3 mm Hg Legend: (L) and (H) fortunato values outside specified reference range. Prepared and electronically signed by Tyron Pastrana MD 04/30/2019 16:37
--- NOTE | 2019-04-30 16:58 | CONS ---
NEUROLOGY CONSULTATION: DATE OF CONSULT: 04/30/19 CONSULTING PROVIDER: Man Smith NP. REASON FOR CONSULT: Episodes of confusion. CHIEF COMPLAINT: Disorientation and unsteadiness. HISTORY OF PRESENT ILLNESS: Mr. Ursula Graves is a 78-year-old right-handed man who has an extensive past medical history of diabetes for more than 15 years. He is on metformin and glyburide, hypertension, coronary artery disease status post CABG in 2013, VFib arrest in 2018 where he was hospitalized at [facility] after he suffered a witnessed arrest for approximately 5 minutes. He did receive CPR and was shocked multiple times. He recovered well from his injury. The patient stated that he has had 2 episodes of feeling confused and unsteady on his feet. The first episode occurred on Tuesday morning. The patient was in [place] where he was supposed to fly back to the [facility] on Tuesday to undergo a dental procedure here in [facility]. He stated that when he woke up he felt disoriented. He was stumbling around his house. He was able to make it to the phone to call his friend who called 911. The patient was hospitalized in [place], [place]. He is not sure what his blood glucose was at that time, but he did get better after drinking orange juice. He stated that he was in a hallway all day in the hospital and no one was taking care of him, so he signed himself home. He never saw a neurologist. He went home and flew to [place] Tuesday. The patient stated that he was not feeling well and decided to come to the hospital to make sure everything was going well. He was diagnosed with a TIA. He woke up on Tuesday and had very similar symptoms. He felt disoriented. He was able to contact EMS and get transported to the hospital. Apparently, last night the patient had another episode and his blood glucose was checked and it was in the 26 range. He had a similar episode during that time and after crackers and some orange juice, his symptoms have resolved. He is currently asymptomatic and denied any headaches, visual disturbance, focal weakness, or paresthesias. He has got a history of chronic neuropathy in his feet and now it is affecting his hand. He has chronic neck pain for the past 2 years and it is worse when extending or flexing his neck. He has trouble looking upright. He denied any impairment in his bowel or bladder functions. He denied any pain and is requesting to go home. The patient has lost weight by painting his home in [place]. There has been no adjustment to his Glyburide. PAST MEDICAL HISTORY: 1. Type 2 diabetes. 2. Hypothyroidism. 3. Cardiac arrest due to VFib status post BiV ICD. 4. Coronary artery disease status post CABG. 5. Dyslipidemia. 6. Questionable history of atrial fibrillation, but the patient is not in AFib at this time. 7. Peripheral artery disease. PAST SURGICAL HISTORY: 1. Bilateral cataract extraction. 2. ICD insertion. 3. CABG. MEDICATIONS: 1. Lisinopril 2.5 mg p.o. daily. 2. Coreg 3.125 mg p.o. twice daily. 3. Omeprazole 40 mg p.o. daily. 4. Potassium chloride 20 mEq daily. 5. Gabapentin 100 mg p.o. b.i.d. 6. Imdur 30 mg p.o. b.i.d. 7. Levothyroxine 50 mcg p.o. daily. 8. Magnesium oxide 400 mg p.o. daily. 9. Carafate 1 g p.o. b.i.d. 10. Glyburide 5 mg p.o. b.i.d. 11. Metformin 500 mg p.o. b.i.d. 12. Trazodone 50 mg p.o. q.h.s. 13. Ascorbic acid 500 mg p.o. daily. 14. Plavix 75 mg p.o. daily. 15. Ferrous gluconate 324 mg p.o. daily. 16. Lasix 40 mg p.o. daily. ALLERGIES: No known drug allergies. FAMILY HISTORY: His father of lung cancer and mother of congestive heart failure. SOCIAL HISTORY: The patient is a former smoker, quitting 30 years ago. He does not drink alcohol. He worked as an electrical power station technician. He is a . REVIEW OF SYSTEMS: A 14-point review of system was obtained and otherwise negative except for what was mentioned in the HPI. PHYSICAL EXAM: VITAL SIGNS: Temperature of 97.4, pulse of 64, respiratory rate of 16, oxygen saturation 97%, blood pressure of 123/52. Please note that his blood pressure at some point did drop, with systolic in the 90s. General: Frail elderly-appearing man who appears older than stated age. He is in no acute distress. Head: Atraumatic, normocephalic without any obvious abnormality. Neck is supple and symmetrical with no carotid bruit. Eyes: Conjunctivae/corneas are clear. Cardiovascular: Regular rate and rhythm with normal S1, S2. Pulmonary: Clear to auscultation bilaterally. Extremities: Normal range of motion with no cyanosis. Skin: No skin lesions or laceration. He has a [place] bandage on the left knee. Psych: Affect is broad, normal mood , easy to establish rapport. Neurological examination: Mental status: Awake, alert, and oriented to person, place, and time and general circumstance. He has got mild psychomotor slowing, but speech and comprehension were all assessed and found to be normal. Cranial nerves: Pupils are equal, round and reactive to light. Extraocular muscles are intact. There is no facial asymmetry. Tongue is symmetric and midline with no atrophy or fasciculation. Motor examination: 5/5 strength in the upper and lower extremities except for 4 /5 strength to finger abduction and finger extension as well as EHL bilaterally. He has got profound distal atrophy especially on the FDI. Sensation: Distal to proximal sensory gradient demarcated at the proximal shins bilaterally. Gait: Wide based gait. No ataxia. Coordination: Normal [id number] and heel- to-nihcole testing. Reflexes: Diminished throughout and absent in the lower extremities. DIAGNOSTIC STUDIES/LAB DATA: WBC 3.8, hemoglobin of 9.6, hematocrit of 30, platelet count of 172. Sodium 135, potassium 5.2, chloride of 110, anion gap of 7, BUN of 56, creatinine is 1.53, blood glucose of 345. Urinalysis negative for pyuria. CT of the head showed no evidence of acute intracranial abnormality. At present , I reviewed the study. CTA showed 50% stenosis on the right and 66% stenosis on the left ICA. Please note that the patient has cervical spine degenerative disk disease mostly affecting the lower cervical spine region. ASSESSMENT AND RECOMMENDATION: Mr. Ursula Graves is a pleasant 78-year-old man who presented with transient episode of unsteady gait and unresponsiveness. The patient has extensive past medical history consisting of coronary artery disease, hypertension, diabetes, ventricular fibrillation arrest, and diabetic polyneuropathy. On examination, the patient has findings consistent with severe neuropathy as well as findings concerning for cervical radiculopathy. His CT of the head showed no evidence of acute stroke. The CTA showed no evidence of severe large vessel occlusion, but he does have calcified plaques in the carotid arteries left worse than the right. The most prominent feature on the CTA is the patient has spondylotic disease mostly involving the lower cervical spine causing moderate spinal canal stenosis. He has no myelopathic features on examination. 1. Transient disorientation and unsteady gait. This is most likely due to symptomatic hypoglycemia or other systemic causes such as hypotension. Defer further management to the primary team. Given the patient's reported history of significant weight loss over the years, I would consider reducing his glyburide as well as closely monitoring his blood sugar. Since the symptoms resolved after giving him orange juice or other hyperglycemic supplements, this is suggestive of symptomatic hypoglycemia. I do not suspect he had a stroke or a transient ischemic attack since the symptoms are generalized and nonfocal in nature, plus the fact that they resolved after correcting his hypoglycemia is consistent with hypoglycemic episode. 2. Severe diabetic polyneuropathy causing atrophy in the hands. This also could be contributing to the patient's unsteady gait. 3. Suspect low cervical spondylotic disease without myelopathy. This should be further evaluated as an outpatient. He should have scheduled either CT myelogram or if the ICD/pacemaker is MRI compatible, then MRI of the cervical spine without contrast. If the patient is having severe neck pain or new weakness, I encourage him to come back to the ER for further evaluation. Furthermore, he should wear a soft cervical collar whenever ambulating. We discussed fall precautions. Please follow up with Neurosurgery or Orthopedic Surgery for cervical spondylosis as an outpatient. [id number]/[facility] #: [id number] [place]
[2019-04-30] MEDS ORDERED: metFORMIN* 1,000 MG TAB PO SCH (17:00)
[2019-04-30 18:14] VITALS: BP 112/66
[2019-04-30] MEDS ORDERED: glyBURIDE TAB* 2.5 MG PO SCH (21:00)
--- NOTE | 2019-05-01 06:12 | DS ---
CC: Dr. Gianfranco Perez; Dr. Tyron Pastrana * DISCHARGE SUMMARY: DATE OF ADMISSION: 04/29/19 DATE OF DISCHARGE: 04/30/19 PRIMARY CARE PROVIDER: Dr. Gianfranco Perez. MY ATTENDING WHILE IN THE HOSPITAL: Dr. Slade Lazar.* (DICTATED BY ISHAN MEYERS) OUTPATIENT TEST SPECIALIST: Dr. Tyron Pastrana. PRIMARY DISCHARGE DIAGNOSES: 1. Spells, likely symptomatic hypoglycemia. 2. Elevated troponin likely due to demand ischemia. 3. Neuropathy, likely related to diabetes, possibly related to cervical radiculopathy. SECONDARY DISCHARGE DIAGNOSES: 1. History of diabetes mellitus, type 2. 2. Hypothyroidism. 3. Coronary artery disease with ischemic cardiomyopathy, left bundle branch block, status post biventricular pacemaker implantation. 4. Hyperlipidemia. 5. History of ventricular fibrillation arrest, status post implantable cardioverter-defibrillator implantation. 6. Atrial fibrillation. 7. Peripheral arterial disease. STUDIES DONE WHILE IN THE HOSPITAL: Brain CT from 04/29/19 read as: Chronic findings including coarse atherosclerotic calcifications, rule out acute apparent intracranial abnormality. Chest x-ray from 04/29/19 read as: X-ray findings consistent with mild pulmonary edema and/or vascular congestion. Head CTA read as: According to the NASCET criteria, calcified atherosclerosis in carotid bulb showing 50% increase in stenosis on the right and 60% increase in stenosis on the left, coarse calcifications in the enlarged left vertebral artery likely causing high-grade stenosis. Ground-glass opacification in the upper lungs bilaterally appearing most commonly in the setting of pulmonary edema/vascular congestion, lower cervical spine degenerative disk disease. Electrocardiogram shows biventricular pacing, left bundle branch pattern. No ST - segment elevation or depression. No discernible P waves likely indicating atrial fibrillation. Transthoracic echocardiogram read as EF 50% to 55%. Poor image quality. Right ventricular systolic function low normal, right atrium severely dilated, both nondiagnostic. Systolic pressure in the pulmonary arteries cannot be accurately estimated. No significant change since 2012. MEDICATIONS AT DISCHARGE: 1. Trazodone 50 mg p.o. at bedtime. 2. Metformin 500 mg p.o. b.i.d. 3. Sucralfate 1 g p.o. b.i.d. 4. Synthroid 50 mcg p.o. daily. 5. Magnesium oxide 400 mg p.o. daily. 6. Imdur 30 mg p.o. b.i.d. 7. Neurontin 100 mg p.o. b.i.d. 8. Furosemide 40 mg p.o. daily. 9. Ferrous gluconate 324 mg p.o. daily. 10. Ascorbic acid 500 mg p.o. daily. 11. Omeprazole 40 mg p.o. daily. 12. Clopidogrel 75 mg p.o. daily. 13. Carvedilol 3.125 mg p.o. b.i.d. 14. Lisinopril 25 mg p.o. daily. 15. Calcium carbonate 500 mg p.o. q.6 hours as needed. 16. Glyburide 2.5 mg p.o. b.i.d. 17. Potassium chloride 10 mEq p.o. daily. New medications on discharge: 1. Calcium carbonate. 2. Glyburide. 3. Potassium chloride. Medications discontinued on discharge: 1. Potassium chloride 20 mEq p.o. daily. 2. Glyburide 5 mg p.o. b.i.d. HOSPITAL COURSE: This is a brief summary of the patient's presentation, for more details please see the history and physical from Dr. Anika Thomas and the consultation from Dr. Russ on 04/29/19 and 04/30/19 respectively. In brief , the patient is a 78-year-old male with the past medical history significant for the above, who presents to the emergency department after 2 episodes of disorientation, weakness, shaking that resolved spontaneously. He felt like his thoughts were scrambled and his speech was off according to bystanders. This happened in [place] and he was diagnosed with a TIA and he was started on aspirin. The patient did have another episode after coming up from [place] to be evaluated by his previous dentist. This episode also resolved spontaneously. The patient overnight on his admission had similar symptoms and was found to have a blood glucose of 26, which resolved with orange juice and dextrose infusion as did his symptoms. The patient was seen in consultation by Dr. Sd Russ, who believed that the patient's symptoms were not related at all to a TIA and were entirely related to symptomatic hypoglycemia. He did, however, believe the patient had a diabetic neuropathy and possible cervical radiculopathy that needed followup as an outpatient. The patient's glyburide was reduced from 5 mg to 2.5 mg daily. The patient had a slightly elevated potassium, possibly related to orange juice that was used for his hypoglycemic episode; however, the patient's potassium was decreased and his potassium decreased from 5.2 to 5 on the day of his discharge. The patient had no EKG changes consistent with hyperkalemia as above. The patient had a transthoracic echocardiogram both assessed for his risk of paradoxical emboli as well as to assess for the etiology of his elevated troponin, which peaked at 0.21 while in the hospital. His echo was unchanged. He never had any chest pain. His troponin was attributed to demand ischemia in the setting of severe coronary artery disease and significant catecholamine release in the setting of multiple episodes of hypoglycemia. The patient was stable enough for discharge to home on 04/30/19. PHYSICAL EXAMINATION ON THE DATE OF DISCHARGE: General: The patient is a 78- year- old male, who appears stated age and sitting comfortably in no acute distress. His vital signs at the time of discharge; temperature 97.8, pulse rate 73, respiratory rate 16, oxygen saturation 99% on room air, blood pressure 99/51. HEENT: Head normocephalic and atraumatic. Sclerae anicteric. No conjunctival injection. Nasal mucosa moist. Oral mucosa moist. No oropharyngeal erythema, discharge, or exudate. Neck: Supple and nontender. No lymphadenopathy. No carotid bruits auscultated. No JVD. Cardiac: Regular rate and rhythm. No clicks, murmurs, gallops, or rubs. Pulses 2+ in the dorsalis pedis, posterior tibialis, and radial areas. No bilateral lower extremity edema. No bilateral calf tenderness. Respiratory: Clear to auscultation bilaterally. No wheezes or rhonchi. Good air exchange bilaterally. Abdomen: Soft, nontender, and nondistended. Bowel sounds present , normoactive in all 4 quadrants. No hepatosplenomegaly. No abdominal bruits auscultated. No hepatojugular reflux. Genitourinary: No suprapubic or CVA tenderness. Skin: Clean, dry, and intact. No rashes. Neuro: Cranial nerves II through XII intact. Peripheral neuropathy in the upper and lower extremities. Muscle wasting particularly in the hands. No radicular pain. Normal gait. DISCHARGE PLAN BY PROBLEM: 1. Spells, hypoglycemia. The patient's spells are likely related to symptomatic hypoglycemia. The patient has recently lost weight related to exercise from needing to paint the outside of his house. This likely increased his insulin sensitivity and predisposed him to episodes of hypoglycemia related to his glyburide use. The patient's glyburide will be reduced to half of his normal dose. The patient's metformin will be continued. The patient should follow up with his primary care provider to discuss transitioning his glyburide to a different medication that could help with cardiovascular outcomes and not cause hypoglycemia such as an SGLT2 inhibitor or a GLP-1 agonist. The patient should return to the hospital for symptomatic hypoglycemia that does not respond to sugar at home. 2. Neuropathy, weakness, muscle wasting. There is some concern that the patient may have a significant cervical spinal disease causing radiculopathy and muscle weakness. The patient should have a CT of his cervical spine and then depending on the results of this, it should be discussed with the patient that whether or not he should be referred to a neurosurgeon for evaluation for severe cervical spinal disease. 3. Elevated troponin. The patient has known severe coronary artery disease with non-stentable 90% lesion in the circumflex artery. The patient had several episodes of severe hypoglycemia, which likely prompted severe catecholamine release and led to demand ischemia. The patient does not have any chest pain. The patient should follow up with his associate principal either in [place] or in [place] and discuss the utility and possible usefulness of a repeat stress test though he did have one 2 years ago, which was unremarkable per report and a repeat may not be indicated given his known non-stentable lesion. 4. Diabetes mellitus, type 2. Management as above. 5. History of ventricular fibrillation. The patient's potassium was slightly elevated while in the hospital. This may be related to his potassium supplementation or the orange juice he drank for his hypoglycemia. The patient' s potassium supplementation has been decreased at this time, particularly given the patient is also on lisinopril, the patient should follow up with his primary care provider with a week and have a repeat BMP. 6. Hypertension. The patient is borderline hypotensive, but is not symptomatic. Continue home medications. DISPOSITION: Home. CONDITION: Stable. TIME SPENT: Approximately 75 minutes was spent on the discharge of this patient , 30 of which was spent [id number] with the patient obtaining history and physical and discussing treatment plan. ISHAN MEYERS [id number]/[facility] #: [id number] [place]
[2019-05-01] MEDS ORDERED: metFORMIN* 1,000 MG TAB PO SCH (17:00)
== END 2019-04-30 17:43 | disposition home or self-care (01) ==
LOC: ED 11:30 → MEDTELE 14:57
PROVIDERS: ADMIT Hospitalist; ATTEND Internal Medicine
DX: E11.649 Type 2 diabetes mellitus with hypoglycemia without coma (principal); R79.89 Other specified abnormal findings of blood chemistry; G62.9 Polyneuropathy, unspecified; I48.91 Unspecified atrial fibrillation; E03.9 Hypothyroidism, unspecified; I25.10 Atherosclerotic heart disease of native coronary artery without angina pectoris; I44.7 Left bundle-branch block, unspecified; I73.9 Peripheral vascular disease, unspecified; K21.9 Gastro-esophageal reflux disease without esophagitis; I25.5 Ischemic cardiomyopathy; I25.2 Old myocardial infarction; E78.5 Hyperlipidemia, unspecified; Z95.810 Presence of automatic (implantable) cardiac defibrillator; Z79.899 Other long term (current) drug therapy; Z87.891 Personal history of nicotine dependence; Z79.890 Hormone replacement therapy; Z79.01 Long term (current) use of anticoagulants; Z95.5 Presence of coronary angioplasty implant and graft; Z79.84 Long term (current) use of oral hypoglycemic drugs; Z87.442 Personal history of urinary calculi
CPT/HCPCS: 36415; 70450; 70496; 70498; 71046; 80048; 80053; 80061; 80320; 81003; 82947; 83036; 83605; 84443; 84484; 85025; 85610; 85730; 86850; 86900; 86901; 93005; 93306; 96360; 96361; 96372; 99285; A9270-GY; C8929; G0378; G0480; J1650; Q9967